=== PATIENT | male | born 1955 | race Caucasian/White ===

== ENCOUNTER 2017-06-12 14:07 | Inpatient (IN) | payer MEDICARE, BC ==
[2017-06-12] MEDS: SODIUM CHLORIDE 0.9% 1L BAG IV* (14:48)
[2017-06-12 15:38] LABS: ADD MAN DIFF? NO
[2017-06-12 15:41] LABS: BASOPHIL # 0.1 10^3/ul (0.0-0.1); EOSINOPHILS # 0.1 10^3/ul (0.0-0.5); EOSINOPHILS % 2.2 % (0.0-7.0); HEMATOCRIT 40.9 % (42.0-52.0); HEMOGLOBIN 13.4 g/dl (14.0-18.0); LYMPHOCYTES # 0.9 10^3/ul (0.8-2.9); LYMPHOCYTES % 15.2 % (15.0-51.0); MEAN CORPUSCULAR HEMOGLOBIN 30.1 pg (29.0-33.0); MEAN CORPUSCULAR HGB CONC 32.8 g/dl (32.0-37.0); MEAN CORPUSCULAR VOLUME 91.9 fl (82.0-101.0); MEAN PLATELET VOLUME 10.8 fl (7.4-10.4); MONOCYTE # 0.4 10^3/ul (0.3-0.9); MONOCYTES % 7.2 % (0.0-11.0); NEUTROPHIL # 4.4 10^3/ul (1.6-7.5); NEUTROPHILS % 74.2 % (39.0-77.0); PLATELET COUNT 127 10^3/UL (140-415); RED BLOOD COUNT 4.45 10^6/ul (4.70-6.10); RED CELL DISTRIBUTION WIDTH 14.7 % (11.5-14.5)
[2017-06-12 15:41] LABS: WHITE BLOOD COUNT 5.9 10^3/ul (4.8-10.8)
[2017-06-12 16:03] LABS: URINE BLOOD (Dip) POC Negative (NEGATIVE); URINE KETONES (Dip) POC Trace (NEGATIVE); URINE LEUKOCYTE EST (Dip) POC Negative (NEGATIVE); URINE NITRITE (Dip) POC Negative (NEGATIVE); URINE TOTAL PROTEIN POC Negative (NEGATIVE)
[2017-06-12 16:03] LABS: URINE PH (Dip) POC 5.5 (5.0-8.5)
[2017-06-12 16:05] LABS: LACTIC ACID 1.7 mmol/L (0.5-2.0)
[2017-06-12 16:10] LABS: ALANINE AMINOTRANSFERASE 49 IU/L (13-69); ALBUMIN 3.2 g/dl (3.3-4.9); ALBUMIN/GLOBULIN RATIO 1.39; ALKALINE PHOSPHATASE 62 IU/L (42-121); ANION GAP 15 (8-16); ASPARTATE AMINO TRANSFERASE 40 IU/L (15-46); BILIRUBIN,INDIRECT 0.7 mg/dl (0-1.1); BILIRUBIN,TOTAL 0.7 mg/dl (0.2-1.3); BLOOD UREA NITROGEN 36 mg/dl (7-20); CALCIUM 8.2 mg/dl (8.4-10.2); CARBON DIOXIDE 19 mmol/L (21-31); CHLORIDE 104 mmol/L (97-110); CREATININE 1.09 mg/dl (0.61-1.24); GLUCOSE 189 mg/dl (70-220); POTASSIUM 3.7 mmol/L (3.5-5.1); SODIUM 134 mmol/L (135-144); TOTAL PROTEIN 5.5 g/dl (6.1-8.1)
[2017-06-12 16:15] LABS: INR 1.05; PARTIAL THROMBOPLASTIN TIME 30.9 Sec (25.0-35.0); PROTIME 13.8 Sec (11.9-14.9); PT RATIO 1.1
[2017-06-12 16:18] LABS: TROPONIN-I 0.025 ng/ml (0.00-0.12)
[2017-06-12] MEDS: CIPROFLOXACIN 400MG/D5W 200 ML IVPB (18:17)
[2017-06-12] MEDS: SOD CHLORIDE 0.9% 1,000 ML IV (18:17)
[2017-06-12 19:20] LABS: LACTIC ACID 1.5 mmol/L (0.5-2.0)
[2017-06-12] MEDS: ONDANSETRON 4 MG INJ IV ×3 (19:29→23:19)
[2017-06-12] MEDS: metroNIDAZOLE 500 MG/NS (PMX) 100 ML IVPB (19:34)
[2017-06-12] MEDS: FENTAnyl 50 MCG/ML VIAL IV (20:23)
[2017-06-12 21:10] LABS: LACTIC ACID 1.6 mmol/L (0.5-2.0)
[2017-06-12] MEDS ORDERED: MAGNESIUM HYDROXIDE 30ML CUP PO (22:00)
[2017-06-12] MEDS ORDERED: DEXTROSE 50% 50 ML SYRINGE IV ×2 (22:00)
[2017-06-12] MEDS ORDERED: BISACODYL (EC) 5 MG TAB PO (22:00)
[2017-06-12] MEDS ORDERED: ACETAMINOPHEN 325 MG TAB PO ×2 (22:00)
[2017-06-12] MEDS ORDERED: HYDROCODONE/APAP (5/325) TAB PO (22:00)
[2017-06-12] MEDS ORDERED: DOCUSATE SODIUM 100 MG CAP PO (22:00)
[2017-06-12] MEDS ORDERED: ZOLPIDEM 5 MG TAB PO (22:00)
[2017-06-12] MEDS ORDERED: ALBUTEROL 0.083% (NEB) 2.5 MG/3 ML AMP NEB (22:00)
[2017-06-12] MEDS: ACCU-CHEK XX ×3 (22:32→23:50)
[2017-06-12 22:33] LABS: LIPASE 42 U/L (23-300)
[2017-06-12] MEDS: DEXTROSE 5%-0.45% NACL 1,000 ML IV (22:33)
[2017-06-12 22:35] LABS: AMYLASE < 30 U/L (11-123)
[2017-06-12 23:53] LABS: TROPONIN-I 0.028 ng/ml (0.00-0.12)
[2017-06-13] MEDS: HYDROmorphONE 2 MG/ML SYG IV (00:57)
[2017-06-13] MEDS: NORepinephrine 8MG/250 ML (PMX 250 ML IV ×2 (01:00→16:13)
[2017-06-13] MEDS: ACCU-CHEK XX ×23 (01:02→23:30)
[2017-06-13] MEDS: INSULIN HUMAN REGULAR 100 UNIT in SOD CHLORIDE 0.9% 99 ML IV (01:30)
[2017-06-13 05:55] LABS: ADD MAN DIFF? NO
[2017-06-13 06:01] LABS: BASOPHILS % 0.2 % (0.0-2.0); EOSINOPHILS % 0.1 % (0.0-7.0); HEMOGLOBIN 15.3 g/dl (14.0-18.0); LYMPHOCYTES # 0.7 10^3/ul (0.8-2.9); LYMPHOCYTES % 6.9 % (15.0-51.0); MEAN CORPUSCULAR HEMOGLOBIN 30.9 pg (29.0-33.0); MEAN CORPUSCULAR HGB CONC 33.3 g/dl (32.0-37.0); MEAN CORPUSCULAR VOLUME 92.9 fl (82.0-101.0); MEAN PLATELET VOLUME 10.8 fl (7.4-10.4); MONOCYTE # 0.4 10^3/ul (0.3-0.9); MONOCYTES % 3.9 % (0.0-11.0); NEUTROPHIL # 8.9 10^3/ul (1.6-7.5); NEUTROPHILS % 88.5 % (39.0-77.0); PLATELET COUNT 154 10^3/UL (140-415); RED BLOOD COUNT 4.95 10^6/ul (4.70-6.10); RED CELL DISTRIBUTION WIDTH 15.3 % (11.5-14.5)
[2017-06-13 06:01] LABS: WHITE BLOOD COUNT 10.1 10^3/ul (4.8-10.8)
[2017-06-13 06:08] LABS: HEMOGLOBIN A1C 9.7 % (0-5.9)
[2017-06-13 06:36] LABS: AADO2 Arterial 79.9 mmHg (7.0-24.0); Arterial Blood Gas Oxygen Sat 92.8 mmHG (95.0-98.0); Arterial COHb 0.7 % (0.0-3.0); Arterial Fraction of Oxyhgb 91.8 % (93.0-99.0); Arterial HCO3 16.6 mmol/L (22.0-26.0); Arterial MetHb 0.4 % (0.0-1.5); Arterial Total Hemglobin 15.9 g/dl (12.0-18.0); MODE NASAL CANNULA; Site A-Line
[2017-06-13 06:41] LABS: LACTIC ACID 2.2 mmol/L (0.5-2.0)
[2017-06-13 06:45] LABS: TROPONIN-I 0.031 ng/ml (0.00-0.12)
[2017-06-13 07:04] LABS: ALANINE AMINOTRANSFERASE 241 IU/L (13-69); ALBUMIN 3.2 g/dl (3.3-4.9); ALBUMIN/GLOBULIN RATIO 1.39; ALKALINE PHOSPHATASE 88 IU/L (42-121); ANION GAP 17 (8-16); ASPARTATE AMINO TRANSFERASE 290 IU/L (15-46); BILIRUBIN,INDIRECT 0.7 mg/dl (0-1.1); BLOOD UREA NITROGEN 43 mg/dl (7-20); C-REACTIVE PROTEIN 1.7 mg/dl (0.0-0.9); CALCIUM 7.3 mg/dl (8.4-10.2); CARBON DIOXIDE 19 mmol/L (21-31); CHLORIDE 108 mmol/L (97-110); CREATININE 1.32 mg/dl (0.61-1.24); GLUCOSE 167 mg/dl (70-220); POTASSIUM 4.1 mmol/L (3.5-5.1); SODIUM 140 mmol/L (135-144); TOTAL PROTEIN 5.5 g/dl (6.1-8.1)
[2017-06-13 07:11] LABS: PHOSPHORUS 5.2 mg/dl (2.5-4.9)
[2017-06-13 07:11] LABS: CHOL/HDL RATIO 2.7 RATIO; CHOLESTEROL 85 mg/dl (100-200); HDL CHOLESTEROL 31 mg/dl (30-78); LDL CHOLESTEROL,CALCULATED 46 mg/dl; MAGNESIUM 1.8 mg/dl (1.7-2.5); TRIGLYCERIDES 38 mg/dl (0-149)
[2017-06-13] MEDS: SERTRALINE 50 MG TAB PO (08:50)
[2017-06-13] MEDS: POTASSIUM CHLORIDE (SR) 10 MEQ TAB PO ×2 (08:50→20:34)
[2017-06-13] MEDS: PANTOPRAZOLE 40 MG INJ IV (09:00)
[2017-06-13] MEDS: METOLAZONE 2.5 MG TAB PO (09:00)
[2017-06-13] MEDS ORDERED: SACUBITRIL PO (09:00)
[2017-06-13] MEDS ORDERED: [UNRECOGNIZED DRUG - OTHER] PO (09:00)
[2017-06-13] MEDS ORDERED: VALSARTAN PO (09:00)
[2017-06-13 09:14] LABS: ERYTHROCYTE SEDIMENTATION RATE 2 mm/Hr (0-20)
[2017-06-13] MEDS: ENOXAPARIN 40 MG/0.4 ML SYG SC (10:16)
[2017-06-13] MEDS: CIPROFLOXACIN 400MG/D5W 200 ML IVPB ×2 (10:43→20:33)
[2017-06-13] MEDS: METOCLOPRAMIDE 10 MG INJ IV (11:36)
[2017-06-13 12:38] LABS: TROPONIN-I 0.033 ng/ml (0.00-0.12)
[2017-06-13] MEDS: metroNIDAZOLE 500 MG/NS (PMX) 100 ML IVPB ×3 (14:00→22:08)
[2017-06-13] MEDS: LORAZEPAM 2 MG INJ IV (14:18)
[2017-06-13] MEDS: morphine 2 MG INJ IV ×2 (17:19→22:24)
[2017-06-13] MEDS: LIDOCAINE 1% (MPF) 5 ML VIAL SC (17:25)
[2017-06-13] MEDS: DEXTROSE 5%-0.45% NACL 1,000 ML IV (17:30)
[2017-06-13] MEDS: SOD CHLORIDE 0.9% 100 ML (17:40)
[2017-06-13] MEDS ORDERED: FUROSEMIDE 20 MG INJ (18:08)
[2017-06-13] MEDS: FUROSEMIDE 20 MG INJ IV (18:56)
[2017-06-13] MEDS: [UNRECOGNIZED DRUG - REMARK] XX (20:48)
[2017-06-13] MEDS: CLOPIDOGREL 75 MG TAB PO (20:48)
[2017-06-13] MEDS ORDERED: ATORVASTATIN 40 MG TAB PO (21:00)
[2017-06-13] MEDS: INSULIN DETEMIR [LEVEMIR] 3ML CART SC (22:12)
[2017-06-14] MEDS: DEXTROSE 5%-0.45% NACL 1,000 ML IV ×2 (01:19→09:20)
[2017-06-14] MEDS: ACCU-CHEK XX ×3 (01:23→02:00)
[2017-06-14] MEDS: ONDANSETRON 4 MG INJ IV (01:49)
[2017-06-14] MEDS: [UNRECOGNIZED DRUG - REMARK] XX ×3 (02:30→18:30)
[2017-06-14] MEDS: METOCLOPRAMIDE 10 MG INJ IV (02:35)
[2017-06-14] MEDS: INSULIN ASPART [NOVOLOG] 3 ML PEN SC ×5 (04:00→21:07)
[2017-06-14 05:23] LABS: ADD MAN DIFF? NO
[2017-06-14 05:47] LABS: WHITE BLOOD COUNT 16.9 10^3/ul (4.8-10.8)
[2017-06-14 05:47] LABS: BASOPHILS % 0.2 % (0.0-2.0); HEMATOCRIT 47.5 % (42.0-52.0); HEMOGLOBIN 15.4 g/dl (14.0-18.0); LYMPHOCYTES # 0.6 10^3/ul (0.8-2.9); LYMPHOCYTES % 3.8 % (15.0-51.0); MEAN CORPUSCULAR HEMOGLOBIN 30.2 pg (29.0-33.0); MEAN CORPUSCULAR HGB CONC 32.4 g/dl (32.0-37.0); MEAN CORPUSCULAR VOLUME 93.1 fl (82.0-101.0); MEAN PLATELET VOLUME 11.2 fl (7.4-10.4); MONOCYTE # 1.1 10^3/ul (0.3-0.9); MONOCYTES % 6.5 % (0.0-11.0); NEUTROPHILS % 88.8 % (39.0-77.0); PLATELET COUNT 162 10^3/UL (140-415)
[2017-06-14] MEDS: PANTOPRAZOLE 40 MG INJ IV (06:08)
[2017-06-14] MEDS: metroNIDAZOLE 500 MG/NS (PMX) 100 ML IVPB ×3 (06:08→22:38)
[2017-06-14 06:31] LABS: ALANINE AMINOTRANSFERASE 272 IU/L (13-69); ALBUMIN 3.2 g/dl (3.3-4.9); ALBUMIN/GLOBULIN RATIO 1.18; ALKALINE PHOSPHATASE 85 IU/L (42-121); ANION GAP 16 (8-16); ASPARTATE AMINO TRANSFERASE 209 IU/L (15-46); BILIRUBIN,INDIRECT 0.8 mg/dl (0-1.1); BILIRUBIN,TOTAL 0.8 mg/dl (0.2-1.3); BLOOD UREA NITROGEN 55 mg/dl (7-20); CALCIUM 7.3 mg/dl (8.4-10.2); CARBON DIOXIDE 20 mmol/L (21-31); CHLORIDE 105 mmol/L (97-110); CREATININE 1.42 mg/dl (0.61-1.24); GLUCOSE 135 mg/dl (70-220); POTASSIUM 3.4 mmol/L (3.5-5.1); SODIUM 138 mmol/L (135-144); TOTAL PROTEIN 5.9 g/dl (6.1-8.1)
[2017-06-14] MEDS: INSULIN DETEMIR [LEVEMIR] 3ML CART SC ×2 (08:15→21:07)
[2017-06-14] MEDS ORDERED: GLUCAGON 1 MG INJ IM (08:30)
[2017-06-14] MEDS ORDERED: DEXTROSE 50% 50 ML SYRINGE IV ×2 (08:30)
[2017-06-14] MEDS ORDERED: GLUCOSE GEL 15 GRAM TUBE PO ×2 (08:30)
[2017-06-14] MEDS ORDERED: GLUCOSE GEL 15 GRAM TUBE BUCCAL (08:30)
[2017-06-14] MEDS: METOLAZONE 2.5 MG TAB PO (09:00)
[2017-06-14] MEDS: POTASSIUM CHLORIDE 50 ML IVPB ×2 (09:14→11:21)
[2017-06-14] MEDS: CIPROFLOXACIN 400MG/D5W 200 ML IVPB ×2 (09:14→21:03)
[2017-06-14] MEDS: SERTRALINE 50 MG TAB PO (09:14)
[2017-06-14] MEDS: POTASSIUM CHLORIDE (SR) 10 MEQ TAB PO ×2 (09:16→21:04)
[2017-06-14] MEDS: morphine 2 MG INJ IV (09:17)
[2017-06-14] MEDS: ENOXAPARIN 40 MG/0.4 ML SYG SC (09:18)
[2017-06-14 19:24] LABS: ALANINE AMINOTRANSFERASE 270 IU/L (13-69); ALBUMIN 3.3 g/dl (3.3-4.9); ALKALINE PHOSPHATASE 78 IU/L (42-121); ASPARTATE AMINO TRANSFERASE 171 IU/L (15-46); BILIRUBIN,INDIRECT 0.8 mg/dl (0-1.1); BILIRUBIN,TOTAL 0.8 mg/dl (0.2-1.3); TOTAL PROTEIN 5.5 g/dl (6.1-8.1)
[2017-06-14] MEDS: traZODone 50 MG TAB PO (21:04)
[2017-06-15] MEDS: [UNRECOGNIZED DRUG - REMARK] XX ×3 (02:33→17:24)
[2017-06-15] MEDS: INSULIN ASPART [NOVOLOG] 3 ML PEN SC ×6 (02:33→20:32)
[2017-06-15] MEDS: metroNIDAZOLE 500 MG/NS (PMX) 100 ML IVPB ×3 (05:31→22:34)
[2017-06-15] MEDS: PANTOPRAZOLE 40 MG INJ IV (05:31)
[2017-06-15] MEDS: DEXTROSE 5%-0.45% NACL 1,000 ML IV ×2 (05:31→15:52)
[2017-06-15 05:55] LABS: ADD MAN DIFF? NO
[2017-06-15 06:03] LABS: WHITE BLOOD COUNT 11.5 10^3/ul (4.8-10.8)
[2017-06-15 06:03] LABS: BASOPHILS % 0.1 % (0.0-2.0); HEMATOCRIT 42.2 % (42.0-52.0); LYMPHOCYTES # 0.6 10^3/ul (0.8-2.9); LYMPHOCYTES % 5.2 % (15.0-51.0); MEAN CORPUSCULAR HEMOGLOBIN 30.8 pg (29.0-33.0); MEAN CORPUSCULAR HGB CONC 33.2 g/dl (32.0-37.0); MONOCYTES % 8.7 % (0.0-11.0); NEUTROPHIL # 9.8 10^3/ul (1.6-7.5); NEUTROPHILS % 85.6 % (39.0-77.0); PLATELET COUNT 121 10^3/UL (140-415); RED BLOOD COUNT 4.54 10^6/ul (4.70-6.10); RED CELL DISTRIBUTION WIDTH 15.4 % (11.5-14.5)
[2017-06-15 06:27] LABS: ALANINE AMINOTRANSFERASE 293 IU/L (13-69); ALKALINE PHOSPHATASE 72 IU/L (42-121); ASPARTATE AMINO TRANSFERASE 175 IU/L (15-46); BILIRUBIN,INDIRECT 0.7 mg/dl (0-1.1); BILIRUBIN,TOTAL 0.7 mg/dl (0.2-1.3); TOTAL PROTEIN 5.4 g/dl (6.1-8.1)
[2017-06-15 06:35] LABS: BLOOD UREA NITROGEN 54 mg/dl (7-20); CARBON DIOXIDE 22 mmol/L (21-31); CHLORIDE 102 mmol/L (97-110); CREATININE 1.28 mg/dl (0.61-1.24); GLUCOSE 134 mg/dl (70-220); SODIUM 133 mmol/L (135-144)
[2017-06-15 07:40] LABS: ANION GAP 13 (8-16)
[2017-06-15 07:43] LABS: POTASSIUM 3.5 mmol/L (3.5-5.1)
[2017-06-15] MEDS: SERTRALINE 50 MG TAB PO (08:49)
[2017-06-15] MEDS: POTASSIUM CHLORIDE (SR) 10 MEQ TAB PO ×2 (08:49→20:32)
[2017-06-15] MEDS: CIPROFLOXACIN 400MG/D5W 200 ML IVPB ×2 (08:49→20:31)
[2017-06-15] MEDS: ENOXAPARIN 40 MG/0.4 ML SYG SC (08:53)
[2017-06-15] MEDS: INSULIN DETEMIR [LEVEMIR] 3ML CART SC ×2 (08:53→20:43)
[2017-06-15] MEDS: METOLAZONE 2.5 MG TAB PO (08:56)
[2017-06-15] MEDS: ONDANSETRON 4 MG INJ IV ×2 (14:13→20:32)
[2017-06-15 15:40] LABS: ADD UMIC YES; UR ASCORBIC ACID 20 mg/dL (NEGATIVE); UR BILIRUBIN (Dip) NEGATIVE (NEGATIVE); UR BLOOD (Dip) 3+ mg/dL (NEGATIVE); UR CLARITY CLOUDY (CLEAR); UR COLOR AMBER (YELLOW); UR GLUCOSE (Dip) 3+ mg/dL (NEGATIVE); UR KETONES (Dip) NEGATIVE (NEGATIVE); UR LEUKOCYTE ESTERASE (Dip) TRACE Leu/ul (NEGATIVE); UR MUCUS FEW /HPF (NONE SEEN); UR NITRITE (Dip) NEGATIVE (NEGATIVE); UR RBC > 182 /HPF (0-5); UR SPECIFIC GRAVITY (Dip) 1.026 (1.003-1.030); UR SQUAMOUS EPITHELIAL CELL FEW /HPF (FEW); UR TOTAL PROTEIN (Dip) 2+ mg/dl (NEGATIVE); UR UROBILINOGEN (Dip) NEGATIVE (NEGATIVE); UR WBC 16 /HPF (0-5)
[2017-06-15] MEDS: METOCLOPRAMIDE 10 MG INJ IV (15:40)
[2017-06-15] MEDS: traZODone 50 MG TAB PO (20:32)
[2017-06-16] MEDS: METOCLOPRAMIDE 10 MG INJ IV (00:19)
[2017-06-16] MEDS: INSULIN ASPART [NOVOLOG] 3 ML PEN SC ×6 (01:00→20:45)
[2017-06-16] MEDS: ONDANSETRON 4 MG INJ IV (02:28)
[2017-06-16] MEDS: [UNRECOGNIZED DRUG - REMARK] XX (02:30)
[2017-06-16] MEDS: DEXTROSE 5%-0.45% NACL 1,000 ML IV ×2 (04:47→14:14)
[2017-06-16] MEDS ORDERED: AL HYDROX/MG HYDROX/SIMETH 30 ML CUP PO (05:00)
[2017-06-16] MEDS: PANTOPRAZOLE 40 MG INJ IV (05:32)
[2017-06-16] MEDS: metroNIDAZOLE 500 MG/NS (PMX) 100 ML IVPB ×3 (05:33→22:31)
[2017-06-16 05:46] LABS: ADD MAN DIFF? NO
[2017-06-16 05:52] LABS: WHITE BLOOD COUNT 8.5 10^3/ul (4.8-10.8)
[2017-06-16 05:52] LABS: EOSINOPHILS % 0.1 % (0.0-7.0); HEMATOCRIT 42.2 % (42.0-52.0); LYMPHOCYTES # 0.6 10^3/ul (0.8-2.9); LYMPHOCYTES % 7.1 % (15.0-51.0); MEAN CORPUSCULAR HEMOGLOBIN 30.4 pg (29.0-33.0); MEAN CORPUSCULAR HGB CONC 33.2 g/dl (32.0-37.0); MEAN CORPUSCULAR VOLUME 91.5 fl (82.0-101.0); MEAN PLATELET VOLUME 11.2 fl (7.4-10.4); MONOCYTES % 12.2 % (0.0-11.0); NEUTROPHIL # 6.8 10^3/ul (1.6-7.5); NEUTROPHILS % 80.2 % (39.0-77.0); PLATELET COUNT 127 10^3/UL (140-415); POSITIVE DIFF @See below; RED BLOOD COUNT 4.61 10^6/ul (4.70-6.10); RED CELL DISTRIBUTION WIDTH 15.1 % (11.5-14.5)
[2017-06-16 06:16] LABS: INR 1.43; PARTIAL THROMBOPLASTIN TIME 32.7 Sec (25.0-35.0); PROTIME 17.7 Sec (11.9-14.9); PT RATIO 1.4
[2017-06-16 06:49] LABS: ALANINE AMINOTRANSFERASE 263 IU/L (13-69); ALBUMIN 3.1 g/dl (3.3-4.9); ALBUMIN/GLOBULIN RATIO 1.34; ALKALINE PHOSPHATASE 112 IU/L (42-121); ANION GAP 12 (8-16); ASPARTATE AMINO TRANSFERASE 118 IU/L (15-46); BILIRUBIN,TOTAL 1.7 mg/dl (0.2-1.3); BLOOD UREA NITROGEN 50 mg/dl (7-20); CALCIUM 6.9 mg/dl (8.4-10.2); CARBON DIOXIDE 22 mmol/L (21-31); CHLORIDE 101 mmol/L (97-110); CREATININE 1.18 mg/dl (0.61-1.24); GLUCOSE 125 mg/dl (70-220); POTASSIUM 3.4 mmol/L (3.5-5.1); SODIUM 132 mmol/L (135-144); TOTAL PROTEIN 5.4 g/dl (6.1-8.1)
[2017-06-16] MEDS: INSULIN DETEMIR [LEVEMIR] 3ML CART SC ×2 (07:52→20:57)
[2017-06-16] MEDS: POTASSIUM CHLORIDE (SR) 10 MEQ TAB PO ×2 (08:44→20:46)
[2017-06-16] MEDS: CIPROFLOXACIN 400MG/D5W 200 ML IVPB ×2 (08:45→20:46)
[2017-06-16] MEDS: SERTRALINE 50 MG TAB PO (08:45)
[2017-06-16] MEDS: ENOXAPARIN 40 MG/0.4 ML SYG SC (08:46)
[2017-06-16] MEDS: METOLAZONE 2.5 MG TAB PO (08:57)
[2017-06-16] MEDS: traZODone 50 MG TAB PO (22:31)
[2017-06-17] MEDS: metroNIDAZOLE 500 MG/NS (PMX) 100 ML IVPB ×2 (05:20→14:09)
[2017-06-17] MEDS: PANTOPRAZOLE 40 MG INJ IV (05:21)
[2017-06-17] MEDS: DEXTROSE 5%-0.45% NACL 1,000 ML IV (08:00)
[2017-06-17] MEDS: POTASSIUM CHLORIDE (SR) 10 MEQ TAB PO (08:01)
[2017-06-17] MEDS: CIPROFLOXACIN 400MG/D5W 200 ML IVPB (08:02)
[2017-06-17] MEDS: METOLAZONE 2.5 MG TAB PO (08:02)
[2017-06-17] MEDS: SERTRALINE 50 MG TAB PO (08:02)
[2017-06-17] MEDS: INSULIN ASPART [NOVOLOG] 3 ML PEN SC ×3 (08:05→17:18)
[2017-06-17] MEDS: ENOXAPARIN 40 MG/0.4 ML SYG SC (08:06)
[2017-06-17] MEDS: INSULIN DETEMIR [LEVEMIR] 3ML CART SC (08:07)
[2017-06-17 10:02] LABS: ADD MAN DIFF? NO
[2017-06-17 10:14] LABS: EOSINOPHILS % 0.4 % (0.0-7.0); HEMATOCRIT 42.7 % (42.0-52.0); HEMOGLOBIN 14.3 g/dl (14.0-18.0); LYMPHOCYTES # 0.6 10^3/ul (0.8-2.9); LYMPHOCYTES % 7.9 % (15.0-51.0); MEAN CORPUSCULAR HEMOGLOBIN 30.1 pg (29.0-33.0); MEAN CORPUSCULAR HGB CONC 33.5 g/dl (32.0-37.0); MEAN CORPUSCULAR VOLUME 89.9 fl (82.0-101.0); MEAN PLATELET VOLUME 11.4 fl (7.4-10.4); NEUTROPHILS % 78.2 % (39.0-77.0); PLATELET COUNT 120 10^3/UL (140-415); POSITIVE DIFF @See below; RED BLOOD COUNT 4.75 10^6/ul (4.70-6.10); RED CELL DISTRIBUTION WIDTH 14.9 % (11.5-14.5)
[2017-06-17 10:14] LABS: WHITE BLOOD COUNT 7.6 10^3/ul (4.8-10.8)
[2017-06-17 10:42] LABS: ALANINE AMINOTRANSFERASE 205 IU/L (13-69); ALBUMIN 2.9 g/dl (3.3-4.9); ALBUMIN/GLOBULIN RATIO 1.03; ALKALINE PHOSPHATASE 209 IU/L (42-121); ANION GAP 14 (8-16); ASPARTATE AMINO TRANSFERASE 81 IU/L (15-46); BILIRUBIN,INDIRECT 1.3 mg/dl (0-1.1); BILIRUBIN,TOTAL 3.1 mg/dl (0.2-1.3); BLOOD UREA NITROGEN 48 mg/dl (7-20); CALCIUM 6.9 mg/dl (8.4-10.2); CARBON DIOXIDE 19 mmol/L (21-31); CHLORIDE 100 mmol/L (97-110); CREATININE 1.16 mg/dl (0.61-1.24); GLUCOSE 110 mg/dl (70-220); POTASSIUM 3.6 mmol/L (3.5-5.1); SODIUM 129 mmol/L (135-144); TOTAL PROTEIN 5.7 g/dl (6.1-8.1)
[2017-06-17] MEDS: FUROSEMIDE 20 MG INJ IV (16:02)
[2017-06-17] MEDS ORDERED: CIPROFLOXACIN 500 MG TAB PO (18:00)
[2017-06-17] MEDS ORDERED: metroNIDAZOLE 500 MG TAB PO (21:00)
== END 2017-06-17 17:49 | disposition home or self-care (01) | DRG 445 ==
LOC: ICU 21:34 → E/R 14:07 → TEL 06-16 12:21
PROC: 02HV33Z Insertion of Infusion Device into Superior Vena Cava, Percutaneous Approach (ICD-10-PCS; principal; 2017-06-13)
PROC: B548ZZA Ultrasonography of Superior Vena Cava, Guidance (ICD-10-PCS; 2017-06-13)
DX: K80.00 Calculus of gallbladder with acute cholecystitis without obstruction (principal); N17.9 Acute kidney failure, unspecified; I95.9 Hypotension, unspecified; I11.0 Hypertensive heart disease with heart failure; E11.65 Type 2 diabetes mellitus with hyperglycemia; D69.6 Thrombocytopenia, unspecified; I50.42 Chronic combined systolic (congestive) and diastolic (congestive) heart failure; E86.0 Dehydration; J45.20 Mild intermittent asthma, uncomplicated; I25.10 Atherosclerotic heart disease of native coronary artery without angina pectoris; E78.5 Hyperlipidemia, unspecified; F51.04 Psychophysiologic insomnia; R41.0 Disorientation, unspecified; I25.5 Ischemic cardiomyopathy; F33.42 Major depressive disorder, recurrent, in full remission; R11.2 Nausea with vomiting, unspecified; R05 Cough; Z91.11 Patient's noncompliance with dietary regimen; Z91.14 Patient's other noncompliance with medication regimen; Z79.4 Long term (current) use of insulin; Z95.810 Presence of automatic (implantable) cardiac defibrillator; Z95.5 Presence of coronary angioplasty implant and graft
CPT/HCPCS: 36569; 36600; 71045; 74176; 76705; 76937; 78226; 80048; 80053; 80061; 80076; 81001; 81003; 82150; 82803; 82962; 83036; 83605; 83690; 83735; 84100; 84484; 85025; 85610; 85651; 85730; 86140; 87040; 87045; 87081; 87086; 87400; 93005; 93306; 96374; 96375; 97110; 97116; 97163; 97530; 99285-25; J1940